=== PATIENT | male | born 1995 | race Hispanic/Latino ===

== ENCOUNTER 2018-03-21 15:59 | Inpatient (IN) | payer MEDICAID ==
--- NOTE | 2018-03-21 16:13 | C.PDOC ---
History Of Present Illness 23yo male, brought in from [facility] for detox from heroin. Documentation regarding patient reviewed prior to arrival. Time Seen by Provider: 03/21/18 16:09 Chief Complaint (Nursing): Medical Clearance History Per: Other (records from [facility]) History/Exam Limitations: no limitations Past Medical History Reviewed: Historical Data, Nursing Documentation, Vital Signs Vital Signs: Last Vital Signs Temp 98.4 F 03/21/18 16:03 Pulse 65 03/21/18 16:03 Resp 16 03/21/18 16:03 BP 130/76 03/21/18 16:03 Pulse Ox 98 03/21/18 16:21 - Medical History PMH: No Chronic Diseases Surgical History: No Surg Hx Family History: States: No Known Family Hx - Social History Hx Alcohol Use: No (DENIED) Hx Substance Use: Yes Review Of Systems Except As Marked, All Systems Reviewed And Found Negative. Physical Exam - Physical Exam Appears: Non-toxic Skin: Normal Color Head: Atraumatic, Normacephalic Eye(s): bilateral: Normal Inspection Neck: Normal ROM, Supple Chest: Symmetrical Cardiovascular: Rhythm Regular Respiratory: Normal Breath Sounds Gastrointestinal/Abdominal: Normal Exam, Soft, No Tenderness Back: Normal Inspection Extremity: Normal ROM Neurological/Psych: Oriented x3 ED Course And Treatment O2 Sat by Pulse Oximetry: 98 (RA) Pulse Ox Interpretation: Normal Medical Decision Making Medical Decision Making: pre-screen transfer from [facility] Disposition Doctor Will See Patient In The: Hospital Counseled Patient/Family Regarding: Studies Performed, Diagnosis - Disposition Disposition: HOSPITALIZED Disposition Time: 16:21 Condition: GOOD - Clinical Impression Clinical Impression: Opiate abuse, continuous - Scribe Statement The provider has reviewed the documentation as recorded by the Kayla Gresham Provider Attestation: All medical record entries made by the Kayla were at my direction and personally dictated by me. I have reviewed the chart and agree that the record accurately reflects my personal performance of the history, physical exam, medical decision making, and the department course for this patient. I have also personally directed, reviewed, and agree with the discharge instructions and disposition.
--- NOTE | 2018-03-21 16:39 | PCM.BM ---
<Corinne Jordan - Last Filed: 03/21/18 16:38> Treatment Plan Problems - Problems identified on initial assessmt potiential for opiate withdrawal Date Initiated: 03/21/18 Time Initiated: 16:38 Assessment reference: NA Status: Active Treatment assets and liabiliti Patient Assests: ADL independent, physically healthy, cognitively intact Patient Liabilities: physical pain, substance abuse - Milieu Protocol Maintain good personal hygiene: daily Encourage regular showers, daily Remind patient to perform daily oral care, daily Assist patient to perform ADL's Maintain personal safety: every shift Educate patient to report safety concerns to staff, every shift Monitor environment for contraband/sharps Medication safety: Monitor for expected outcome, potential side effects: every shift, Assess barriers to learning: every shift, Assess readiness for medication education: every shift <Courtney Turpin - Last Filed: 03/22/18 23:16> - Diagnosis (1) Opiate abuse, continuous Status: Acute Interventions: 03/22/18 23:16 * Assess 7x/week regarding severity of withdrawal * Educate regarding risks, benefits, side effects and alternatives of medications * Use Motivational Interviewing for abstinence * Use CBT for relapse prevention * Medication management for withdrawal symptoms * Encourage medication assisted treatment *
[2018-03-21] MEDS ORDERED: Aluminum Hydroxide/Magnesium Hydroxide Susp (30 mL) PO PRN (17:31)
[2018-03-21] MEDS ORDERED: guaiFENesin DM 200 mg-20 mg/10 ml UD PO PRN (17:31)
[2018-03-21] MEDS ORDERED: Benzocaine/Menthol (Cepacol) Lozenge PO PRN (17:31)
[2018-03-21] MEDS ORDERED: Buprenorphine Hydrochloride 2 mg SL ONE ×2 (17:38→18:35)
[2018-03-22] MEDS: Buprenorphine Hydrochloride 2 mg SL SCH (09:13)
--- NOTE | 2018-03-22 14:36 | PCM.PSYCH ---
Initial Psychiatric Evaluation - Initial Psychiatric Evaluation Type of Admission: Voluntary Legal Status: Capacity Chief Complaint (in patient's own words): "I need detox from heroin." History of Present Illness and Precipitating Events: Pt is seen, chart reviewed, case discussed with staff. Pt is a 23 y/o male wo presented to the ED for heroin detox; pt rents a room by himself in [place]; pt is single with a 2 y/o daughter who lives with her mother; pt works at a [employer]. Pt began using heroin 3 years ago; pt uses 8 bags/day IV into both arms. Pt smokes half a pack of cigarettes/day; pt has used all drugs in the past including marijuana, cocaine, and PCP but pt denies using them now. Pt has been to detox 2x before and was sober 3-4 months before relapse; pt has been to rehab 2x before, once at [facility], once at [facility]. Pts longest sobriety lasted for 6 months. Pt describes and displays significant withdrawal sxs including body aches, anxiety, chills, and sweating. Past medical hx denied. Family hx denied. Psychiatric hx denied. Pt states that he is not interested in a program after detox as he is currently on probation for possession and believes that he will be going back to group home after he is done with detox. Current Medications: Active Medications Generic Name Dose Route Start Last Admin Trade Name Freq PRN Reason Stop Dose Admin Acetaminophen 650 mg 03/21/18 17:31 Tylenol 325mg Tab PO Q4H PRN Pain, moderate (4-7) Al Hydrox/Mg Hydrox/Simethicone 30 ml 03/21/18 17:31 Maalox 30 Ml PO TID PRN Indigestion / Heartburn Buprenorphine HCl 8 mg 03/22/18 10:00 03/22/18 09:13 Subutex SL 03/26/18 09:59 8 mg DAILY NICHELLE Administration Taper Clonidine HCl 0.1 mg 03/21/18 17:31 Catapres PO Q8 PRN COWS Score More or Equal to 5 Loperamide HCl 2 mg 03/21/18 17:31 Imodium PO Q8 PRN Diarrhea Nicotine 1 patch 03/22/18 10:00 03/22/18 09:13 Nicoderm Cq TD 1 patch DAILY NICHELLE Administration Ondansetron HCl 4 mg 03/21/18 17:31 Zofran Tab PO Q8 PRN Nausea/Vomiting Trazodone HCl 50 mg 03/22/18 22:00 Desyrel PO HS [facility] Past Psychiatric History - Past Psychiatric History Previous Treatment History: Inpatient Prior Professional Help: Rehab 2x @ [facility] and [facility] Pertinent Medical Hx (Current Medical&Sleep Prob, Allergies): Allergies Allergy/AdvReac Type Severity Reaction Status Date / Time cephalexin [From Keflex] Allergy Verified 03/21/18 16:05 No Known Home Med 03/21/18 Review of Systems - Psychiatric Psychiatric: Abnormal Sleep Pattern, Anhedonia, Anxiety, Change in Appetite. absent: Auditory Hallucinations, Confusion, Depression, Difficulty Concentrating , Hallucinations, Homicidal Ideation, Memory Loss, Mood Swings, Panic Attacks, Suicidal Ideation, Visual Hallucinations, Tactile Hallucinations Mental Status Examination - Personal Presentation Personal Presentation: Looks stated age - Affect Affect: Constricted - Motor Activity Motor Activity: Psychomotor Retardation - Reliability in Providing Information Reliability in Providing Information: Good - Speech Speech: Organized - Mood Mood: Depressed - Formal Thought Process Formal Thought Process: No Impairment - Obsessions/Compulsions Obsessions: No Compulsions: No - Cognitive Functions Orientation: Person, Place, Situation, Time Sensorium: Alert Abstract Thinking: Gomer Estimate of Intelligence: Average Judgement: Imparied, as evidence by: Poor judgement - Risk Risk: Withdrawal - Limitations Limitations: Living alone DSM 5 DX - DSM 5 DSM 5 Diagnosis: Opioid Withdrawal Opioid Use Disorder, severe - Recommended/Plan of Treatment Treatment Recommendations and Plan of Treatment: Taper with Subutex Gabapentin for augmentation if needed As needed medications All risks, benefits and alternatives of the meds discussed, and the pt agreed and understood. Attend groups and activities Supportive therapy and psychoeducation DE for abstinence CBT for relapse prevention Encourage MAT Refer to rehab or IOP, and self-help groups Smoking cessation with DE Nicotine patch if needed 35 min
[2018-03-23] MEDS: Buprenorphine Hydrochloride 2 mg SL SCH (10:09)
--- NOTE | 2018-03-23 16:45 | PCM.PYCHPN ---
Psychiatric Progress Note - Psychiatric Progress Note Patient seen today, length of contact: 15 min Patient Chief Complaint: "I feel ok" Problems Identified/Issues Discussed: The pt is seen, chart reviewed, case discussed with staff. Pt complains of body aches, poor sleep, and waking up at night sweating. Says that his appetite is good The pt is compliant with medications and reports no side-effects. Symptoms are improving but needs more time to stabilize. Pt attends groups and activities. Support given, psycho-education provided. After care discussed. Mental Status Examination - Cognitive Function Orientation: Person, Place, Situation, Time Memory: Intact Attention: WNL Concentration: WNL Association: WNL Fund of Knowledge: WNL - Mood Mood: Depressed - Affect Affect: Constricted - Speech Speech: Appropriate - Formal Thought Process Formal Thought Process: No Impairment - Suicidal Ideation Suicidal Ideation: No - Homicidal Ideation Homicidal Ideation: No Goal/Treatment Plan - Goal/Treatment Plan Progress Toward Problem(s) and Goals/Treatment Plan: Taper with Subutex Gabapentin for augmentation if needed As needed medications All risks, benefits and alternatives of the meds discussed, and the pt agreed and understood. Attend groups and activities Supportive therapy and psychoeducation AL for abstinence CBT for relapse prevention Encourage MAT Refer to rehab or IOP, and self-help groups Smoking cessation with AL Nicotine patch if needed 15 min
[2018-03-24] MEDS: Buprenorphine Hydrochloride 2 mg SL SCH (09:57)
[2018-03-24 09:59] VITALS: RESP 18
--- NOTE | 2018-03-24 20:21 | PCM.PYCHPN ---
Psychiatric Progress Note - Psychiatric Progress Note Patient seen today, length of contact: 15 min Patient Chief Complaint: I NEED TO FIND OUT HOW I CAN STAY CLEAN Problems Identified/Issues Discussed: PT SEEN AND EXAMINED DISCUSSED WITH STAFF [facility] Medical Problems: NONE NOTED Diagnostic Results: REVIEWED DSM 5 Symptoms Update: IRRITABILITY DIFFICULTY CONCENTRATING Medication Change: Yes (DOSAGE OF TAPER CHANGES DAILY) Medical Record Reviewed: Yes Mental Status Examination - Cognitive Function Orientation: Person, Situation, Time Memory: Intact Attention: WNL Concentration: WNL Association: WNL Fund of Knowledge: WNL - Mood Mood: Depressed - Affect Affect: Constricted - Speech Speech: Appropriate - Formal Thought Process Formal Thought Process: No Impairment - Suicidal Ideation Suicidal Ideation: No - Homicidal Ideation Homicidal Ideation: No Goal/Treatment Plan - Goal/Treatment Plan Need for Continued Stay: Discharge may exacerbated symptoms Progress Toward Problem(s) and Goals/Treatment Plan: OPIOID WITHDRAWAL SUBUTEX TAPER OPIOID USE DISORDER NM CBT SUPPORTIVE PSYCHOTHERAPY GROUP [facility] RECREATIONAL THERAP[facility] Estimated Date of D/C: 03/27/18 - Smoking Cessation Smoking Cessation Initiated: No
[2018-03-25] MEDS: Buprenorphine Hydrochloride 2 mg SL SCH (10:43)
--- NOTE | 2018-03-25 20:02 | PCM.PYCHPN ---
Psychiatric Progress Note - Psychiatric Progress Note Patient seen today, length of contact: 15 min Patient Chief Complaint: I WANT TO GO BACK TO THE DOCTOR WHO WAS PRESCRIBING MY SUBOXONE, SHE HAD TO DISCHARGE ME BECAUSE I RELAPSED Problems Identified/Issues Discussed: PT SEEN AND EXAMINED DISCUSSED WITH STAFF DISCUSSED WITH PT SELF SUPPORT GROUPS SUCH AA AND NA CONSIDER GETTING A SPONSOR TO HELP STAY SOBER DISCUSSED WITH PT PAWS Medical Problems: NONE NOTED Diagnostic Results: REVIEWED DSM 5 Symptoms Update: INSOMNIA IRRITABILITY Medication Change: Yes (DOSAGE OF TAPER CHANGES DAILY) Medical Record Reviewed: Yes Mental Status Examination - Cognitive Function Orientation: Place, Situation, Time Memory: Intact Attention: WNL Concentration: WNL Association: WN Fund of Knowledge: WNL - Mood Mood: Depressed - Affect Affect: Constricted - Speech Speech: Appropriate - Formal Thought Process Formal Thought Process: No Impairment - Suicidal Ideation Suicidal Ideation: No - Homicidal Ideation Homicidal Ideation: No Goal/Treatment Plan - Goal/Treatment Plan Need for Continued Stay: Discharge may exacerbated symptoms Progress Toward Problem(s) and Goals/Treatment Plan: OPIOID WITHDRAWAL SUBUTEX TAPER PRNS OPIOID USE DISORDER OK CBT SUPPORTIVE PSYCHOTHERAPY GROUP [facility] RECREATIONAL THERAPY AND PRNS NECESSARY FOR SYMPTOM MANAGEMENT Estimated Date of D/C: 03/27/18 - Smoking Cessation Smoking Cessation Initiated: No
[2018-03-26 06:47] VITALS: BP 105/64; PULSE 57; TEMP 97.9; O2SAT 98
--- NOTE | 2018-03-26 08:48 | PCM.PYCHDC ---
Mental Status Examination - Mental Status Examination Orientation: Person, Place, Situation, Time Memory: Intact Mood: Anxious Affect: Constricted Speech: Appropriate Attention: WNL Concentration: WNL Association: WNL Fund of Knowledge: WNL Formal Thought Process: No Impairment Suicidal Ideation: No Current Homicidal Ideation?: No Discharge Summary - Discharge Note Reason for Hospitalization: Opioid detox Consultations:: List each consultation separately and include: 1. Reason for request. 2. Findings. 3. Follow-up Summary of Hospital Course include:: 1. Description of specific treatment plan utilized for patients during their course of treatmen. 2. Summarize the time- course for resolution of acute symptoms and/or regressed behaviors. 3. Describe issues identified and worked on during hospitalization. 4. Describe medication utilized. 5. Describe medical problems identified and treated. 6. Reassessment of suicide risk Summary of Hospital Course: Pt is seen, chart reviewed, case discussed with staff. On admission: Pt is a 23 y/o male wo presented to the ED for heroin detox; pt rents a room by himself in [place]; pt is single with a 2 y/o daughter who lives with her mother; pt works at a [employer]. Pt began using heroin 3 years ago; pt uses 8 bags/day IV into both arms. Pt smokes half a pack of cigarettes/day; pt has used all drugs in the past including marijuana, cocaine, and PCP but pt denies using them now. Pt has been to detox 2x before and was sober 3-4 months before relapse; pt has been to rehab 2x before, once at [facility], once at [facility]. Pts longest sobriety lasted for 6 months. Pt describes and displays significant withdrawal sxs including body aches, anxiety, chills, and sweating. Past medical hx denied. Family hx denied. Psychiatric hx denied. Pt states that he is not interested in a program after detox as he is currently on probation for possession and believes that he will be going back to skilled nursing after he is done with detox. Hospital course: The pt was admitted and started on treatment with psychotherapy, support, psychoeducation and medications. [place] and CBT used. The pt attended groups and activities, as well as milieu therapy. All the risks and benefits of medications are discussed and the patient understood and agreed. The pt improved with the treatments provided. After care discussed with the patient. He will go to [facility] but he says he will NOT attend their LT program (?) He was unmotivated and irritable and minimized need for treatment and risk. - Final Diagnosis (DSM 5) Condition upon Discharge: GOOD DSM 5: Opioid Withdrawal Opioid Use Disorder, severe Personality d/o - unspecified Disposition: HOME/ ROUTINE Follow-up Treatment Plan: Continue below medications after discharge. Follow after care plan as discussed. Use relapse prevention skills Return to ER or call 911 if suicidal, homicidal or symptoms relapse. Stay away from stress, alcohol and drugs. See primary doctor regularly and get labs. Prescriptions/Medication Reconciliation: Gabapentin [Neurontin] 300 mg PO TID #90 cap traZODone [Desyrel] 50 mg PO HS PRN #30 tab PRN Reason: Insomnia
== END 2018-03-26 11:08 | disposition home or self-care (01) | DRG 745 ==
LOC: C.ER 15:59 → C.7D 16:13
PROVIDERS: ADMIT Psychiatry & Neurology Psychiatry; ATTEND Psychiatry & Neurology Psychiatry
PROC: GZHZZZZ Group Psychotherapy (ICD-10-PCS; principal; 2018-03-21)
PROC: GZ56ZZZ Individual Psychotherapy, Supportive (ICD-10-PCS; 2018-03-21)
DX: F11.23 Opioid dependence with withdrawal (principal); F17.210 Nicotine dependence, cigarettes, uncomplicated; F41.9 Anxiety disorder, unspecified; G47.00 Insomnia, unspecified; Z65.3 Problems related to other legal circumstances